=== PATIENT | female | born 1980 | race Caucasian/White ===

== ENCOUNTER 2019-09-08 15:37 | Emergency (ER) | payer OTHER ==
[~2019-09-08] VITALS: Ht 157.5 cm; Wt 94.8 kg
[2019-09-08 15:41] VITALS: BP 135/75
--- NOTE | 2019-09-08 15:46 | NUR ---
PT TO BED 12 WITH STEADY GAIT
--- NOTE | 2019-09-08 16:01 | NUR ---
PAIN POST SURGERY-GALLBLADDER REMOVED AUGUST 27, 2019 PAIN 10/10. PT STATES SHE AGGRAVATED SITE WHILE EXERCISING YESTERDAY . DENIES N/V/D; SKIN IS PINK/WARM/DRY; AAOX4 WITH EVEN AND STEADY GAIT; LUNGS CLEAR BL; HR EVEN AND REGULAR; PT DENIES ANY FEVER, CP, SOB, OR COUGH AT THIS TIME; PATIENT STATES PAIN OF 10/10 AT THIS TIME; VSS; PATIENT POSITIONED FOR COMFORT; HOB ELEVATED; BEDRAILS UP X2; BED DOWN. ER MD MADE AWARE OF PT STATUS. FAMILY AT BEDSIDE.
[2019-09-08] MEDS ORDERED: KETOROLAC 60 MG/2 ML VIAL IM ONE (16:40)
[2019-09-08 17:25] LABS: BASOPHILS # (AUTO) 0.1 K/uL (0.00-0.22); BASOPHILS % (AUTO) 1.1 % (0.0-2.0); EOSINOPHILS # (AUTO) 0.4 K/uL (0-0.4); EOSINOPHILS % (AUTO) 4.5 % (0.0-4.0); HEMATOCRIT 40.6 % (36-48); HEMOGLOBIN 13.6 g/dL (12.0-16.0); LYMPHOCYTES # (AUTO) 2.8 K/uL (2.5-16.5); LYMPHOCYTES % (AUTO) 34.4 % (20.5-51.1); MEAN CORPUSCULAR HEMOGLOBIN 32 pg (27-31); MEAN CORPUSCULAR HGB CONC 34 g/dL (33-37); MEAN CORPUSCULAR VOLUME 93.8 fL (80-94); MONOCYTES # (AUTO) 0.5 K/uL (0.8-1.0); MONOCYTES % (AUTO) 6.7 % (1.7-9.3); NEUTROPHILS # (AUTO) 4.4 K/uL (1.8-7.7); NEUTROPHILS % (AUTO) 53.3 % (42.2-75.2); PLATELET COUNT (AUTO) 430 K/uL (140-450); RED BLOOD CELL COUNT(AUTO) 4.33 MIL/uL (4.20-5.40); RED CELL DISTRIBUTION WIDTH 13.3 % (11.6-13.7); WHITE BLOOD COUNT (AUTO) 8.2 K/uL (4.8-10.8)
[2019-09-08 17:29] LABS: ANION GAP 11.5 (8-16); CARBON DIOXIDE 26.4 mmol/L (21-32); CREATININE 0.6 mg/dL (0.6-1.3); POTASSIUM 3.9 mmol/L (3.5-5.1)
[2019-09-08 17:34] LABS: ALBUMIN 3.6 g/dL (3.4-5.0); TOTAL BILIRUBIN 0.4 mg/dL (0.0-1.0)
[2019-09-08 18:34] VITALS: BP 132/73
--- NOTE | 2019-09-08 18:34 | NUR ---
Patient discharged with v/s stable. Written and verbal after care instructions given and explained. Patient alert, oriented and verbalized understanding of instructions. Ambulatory with steady gait. All questions addressed prior to discharge. ID band removed. Patient advised to follow up with PMD. Rx of NORCO AND ZOFRAN given. Patient educated on indication of medication including possible reaction and side effects. Opportunity to ask questions provided and answered.
== END 2019-09-08 18:34 | disposition home or self-care (01) ==
LOC: MED 15:37
DX: R10.11 Right upper quadrant pain (principal); I10 Essential (primary) hypertension; Z90.49 Acquired absence of other specified parts of digestive tract; Z98.890 Other specified postprocedural states
CPT/HCPCS: 36415; 76705; 80053; 81002; 81025; 83690; 85025; 96372; 99284; J1885; Q0092

== ENCOUNTER 2020-12-06 22:11 | Emergency (ER) | payer OTHER ==
[~2020-12-06] VITALS: Ht 162.6 cm; Wt 95.3 kg
[2020-12-06 22:54] VITALS: BP 115/84
--- NOTE | 2020-12-06 22:54 | NUR ---
TO TENT AMBULATORY
--- NOTE | 2020-12-06 23:40 | NUR ---
SEEN AND EXAMINED BY KLEBER WITH ORDER, CARRIED OUT.
--- NOTE | 2020-12-07 00:05 | NUR ---
RESULT BACK AND NOTED BY ERMD AND FOR D/C.
[2020-12-07 00:12] VITALS: BP 126/81
--- NOTE | 2020-12-07 00:13 | NUR ---
Patient discharged with v/s stable. Written and verbal after care instructions given and explained. Patient verbalized understanding. Ambulatory with steady gait. All questions addressed prior to discharge. Advised to follow up with PMD.
== END 2020-12-07 00:13 | disposition home or self-care (01) ==
LOC: MED 22:11
DX: R05 Cough (principal); R06.2 Wheezing; R11.10 Vomiting, unspecified
CPT/HCPCS: 71045; 99283

== ENCOUNTER 2022-05-07 09:46 | Emergency (ER) | payer OTHER ==
[~2022-05-07] VITALS: Ht 160 cm; Wt 93.0 kg
[2022-05-07 10:03] VITALS: BP 123/99
[2022-05-07] MEDS ORDERED: KETOROLAC 60 MG/2 ML VIAL IM ONE (10:38)
[2022-05-07] MEDS ORDERED: CIPR500T4 PO (10:41)
[2022-05-07] MEDS ORDERED: IBUP-2213 PO (10:42)
[2022-05-07] MEDS: KETOROLAC 60 MG/2 ML VIAL IM ONE (10:42)
[2022-05-07 10:50] VITALS: BP 106/74
== END 2022-05-07 10:50 | disposition home or self-care (01) ==
LOC: MED 09:46
DX: N39.0 Urinary tract infection, site not specified (principal); M54.50 Low back pain, unspecified; Z90.49 Acquired absence of other specified parts of digestive tract
CPT/HCPCS: 81002; 81025; 96372; 99283; J1885